=== PATIENT | female | born 1970 | race Two or more races ===

== ENCOUNTER 2019-03-25 18:45 | Emergency (ER) | payer SELFPAY ==
[~2019-03-25] VITALS: Ht 165.1 cm; Wt 75.0 kg
--- NOTE | 2019-03-25 19:32 | NUR ---
PT. TO CT VIA [facility] NOW. PT. HAS BEEN DRY-HEAVING AND HAVING SMALL AMOUNTS OF EMESIS SINCE ARRIVAL. PT. AWAING ERP EVAL. PT. C/O KAUFMAN SINCE 3PM TODAY. PT. REPORTS NAUSEA/VOMITING R/T KAUFMAN. COOL WASHCLOTH PROVIDED FOR COMFORT UNTIL FURTHER ORDERS RECEIVED.
--- NOTE | 2019-03-25 20:00 | NUR ---
PT. CONTINUES TO AWAIT PROVIDER EVAL. PT. IN ROOM WITH ALL LIGHT OFF AND DECREASED STIMULATION FOR CONTINUED C/O KAUFMAN. COOL WASHCLOTH ON HEAD FOR COMFORT. FAMILY AT BS FOR SUPPORT. CALL LIGHT IN REACH.
[2019-03-25] MEDS ORDERED: HYDROmorphone 2 MG/ML, 1ML ONE (20:19)
[2019-03-25] MEDS ORDERED: ONDANSETRON 2MG/ML, 2ML ONE (20:19)
[2019-03-25] MEDS ORDERED: SODIUM CHLORIDE FLUSH 10ML SYR IVF ONE (20:30)
[2019-03-25] MEDS ORDERED: HYDROmorphone 1 MG/ML, 1ML INJ IVPush PRN (20:30)
[2019-03-25] MEDS ORDERED: ONDANSETRON 2MG/ML, 2ML IVPush ONE (20:30)
--- NOTE | 2019-03-25 20:30 | NUR ---
LATE ENTRY: PT. MEDICATED PER MAR AND PLACED ON 2L O2 FOR DESAT AFTER MEDS. IMMEDIATE INCREASE IN O2 BACK UP ABOVE 92%. ALL SAFETY MEASURES OBSERVED. CALL LIGHT IN REACH. FAMILY REMAINS AT BS FOR SUPPORT.
[2019-03-25 20:33] LABS: BASOPHILS % (AUTO) 0 % (0-1); EOSINOPHILS # (AUTO) 0.01 x10^3/uL (0-0.4); EOSINOPHILS % (AUTO) 0 % (1-7); LYMPHOCYTES # (AUTO) 1.07 x10^3/uL (1-3.4); LYMPHOCYTES % (AUTO) 14 % (22-44); MD NO; MEAN CORPUSCULAR HEMOGLOBIN 25.5 pg (27.0-34.8); MEAN CORPUSCULAR VOLUME 79.7 fL (80-100); MEAN PLATELET VOLUME 10.9 fL (7.4-10.4); MONOCYTES # (AUTO) 0.29 x10^3/uL (0.2-0.8); MONOCYTES % (AUTO) 4 % (2-9); NEUTROPHILS # (AUTO) 6.47 x10^3/uL (1.8-6.8); NEUTROPHILS % (AUTO) 83 % (42-75); PLATELET COUNT 217 x10^3/uL (130-400); RED BLOOD COUNT 4.63 x10^6/uL (3.82-5.3); RED CELL DISTRIBUTION WIDTH 19.7 % (9.6-15.2)
[2019-03-25 20:44] LABS: ALBUMIN 3.5 g/dL (3.4-5.0); ANION GAP 8 mmol/L (5-15); CALCIUM 8.8 mg/dL (8.5-10.1); CHLORIDE 109 mmol/L (98-107); CREATININE 0.79 mg/dL (0.55-1.02)
[2019-03-25] MEDS ORDERED: OMNIPAQUE 350 MG/ML, 100ML BOTTLE ONE (21:44)
--- NOTE | 2019-03-25 21:58 | NUR ---
PT. BACK FROM CT. PT. AMBULATED TO BR IN ROOM WITH STEADY GAIT. PT. BEGAN VOMITING AGAIN AT THIS TIME. SMALL AMOUNT OF BILE NOTED.
[2019-03-25 22:17] VITALS: BP 123/72
[2019-03-25] MEDS ORDERED: ONDANSETRON ODT 4 MG ONE (22:27)
--- NOTE | 2019-03-25 22:30 | NUR ---
WHILE PT. WAS UP AND GETTITNG DRESSED PT. STARTED VOMITING AGAIN. PO ZOFRAN ADMIN PER DR. HOLLAND ORDER. DR. HOLLAND BACK IN TO RE-EVAL PT. AND FURTHER DISCUSS POC.
[2019-03-25] MEDS ORDERED: ONDANSETRON ODT 4 MG PO ONE (23:00)
== END 2019-03-25 22:56 | disposition home or self-care (01) ==
LOC: ED 21:10
DX: G44.209 Tension-type headache, unspecified, not intractable (principal)
CPT/HCPCS: 36415; 70450; 70496; 80048; 82040; 85025; 96374; 96375; 99284; J1170; J2405; Q0162; Q9967